=== PATIENT | male | born 1935 | race Caucasian/White ===

== ENCOUNTER 2018-06-18 12:27 | Outpatient (CLI) | payer MEDICARE, BC ==
--- NOTE | 2018-06-18 14:20 | RAD ---
TWO VIEWS OF THE CHEST: DATE: 06/18/18. COMPARISON: 09/30/16. HISTORY: Dyspnea. FINDINGS: There is no pneumothorax or pleural fluid. No focal consolidation or alveolar edema. There is exagg erated thoracic kyphosis, stable. There are postoperative clips in the right upper quadrant suggesti ng prior cholecystectomy, stable. There is stable atherosclerotic calcification of the aortic arch. There is mild increased linear interstitial density with pulmonary hyperinflation suggesting air tra pping, stable as well. IMPRESSION: Stable 2-view examination of the chest as detailed above. POS: [facility]
== END 2018-06-18 12:28 | disposition home or self-care (01) ==
LOC: RAD 12:27
PROVIDERS: ATTEND Internal Medicine Critical Care Medicine
DX: R06.00 Dyspnea, unspecified (principal); M40.294 Other kyphosis, thoracic region; I70.0 Atherosclerosis of aorta; J98.4 Other disorders of lung; Z98.890 Other specified postprocedural states
CPT/HCPCS: 71046

== ENCOUNTER 2018-07-02 08:59 | Outpatient (CLI) | payer MEDICARE, BC | END 2018-07-02 09:00 | disposition home or self-care (01) | LOC: CP 08:59 | PROVIDERS: ATTEND Internal Medicine Critical Care Medicine | DX: R06.00 Dyspnea, unspecified (principal) | CPT/HCPCS: 94060; 94727; 94729 ==

== ENCOUNTER 2019-02-02 09:20 | Outpatient (CLI) | payer MEDICARE, BC ==
--- NOTE | 2019-02-02 09:41 | RAD ---
Exam: Chest 2 views HISTORY:Dyspnea Comparison: 06/18/2018 FINDINGS: Lungs: Patchy left basilar density Cardiac silhouette:Stable Pulmonary vessels: Normal Pleural Spaces: Clear Pneumothorax: None Osseous abnormalities: None of acuity. IMPRESSION: Patchy left basilar density indicative of pneumonia. Recommend follow-up to resolution.
== END 2019-02-02 09:21 | disposition home or self-care (01) ==
LOC: RAD 09:20
PROVIDERS: ATTEND Internal Medicine Critical Care Medicine
DX: R06.00 Dyspnea, unspecified (principal); J18.9 Pneumonia, unspecified organism
CPT/HCPCS: 71046

== ENCOUNTER 2019-04-06 09:11 | Outpatient (CLI) | payer MEDICARE, BC ==
--- NOTE | 2019-04-06 10:10 | RAD ---
2 VIEW CHEST: Date: 04/06/19 INDICATION: Dyspnea. Comparison made to films of 02/02/19 and 06/18/18. FINDINGS: No evidence of infiltrate. No evidence of effusion. Calcified granuloma on the right lower lung is st able. There is a nodular density seen anteriorly on the lateral view which is stable. Heart size uppe r normal and stable. Mild aortic calcification again noted. Vasculature within normal range and stabl e. Osseous structures unremarkable. IMPRESSION: Stable chest findings. POS: [facility]
== END 2019-04-06 09:12 | disposition home or self-care (01) ==
LOC: RAD 09:11
PROVIDERS: ATTEND Internal Medicine Critical Care Medicine
DX: R06.00 Dyspnea, unspecified (principal)
CPT/HCPCS: 71046

== ENCOUNTER 2022-05-29 08:33 | Outpatient (CLI) | payer MEDICARE, BC | END 2022-05-29 08:34 | disposition home or self-care (01) | LOC: BICCT 08:33 | PROVIDERS: ATTEND Family Medicine | DX: K92.1 Melena (principal) | CPT/HCPCS: 74178; 82565 ==

== ENCOUNTER 2022-06-05 10:05 | Outpatient (CLI) | payer MEDICARE, BC | END 2022-06-05 10:06 | disposition home or self-care (01) | LOC: LABBT 10:05 | PROVIDERS: ATTEND Internal Medicine | DX: C34.80 Malignant neoplasm of overlapping sites of unspecified bronchus and lung (principal); Z20.822 Contact with and (suspected) exposure to COVID-19 | CPT/HCPCS: 87811 ==

== ENCOUNTER 2022-06-10 08:46 | Inpatient (IN) | payer MEDICARE, BC ==
[2022-06-10 08:47] LABS: #Eosinphils 0.1 thou/uL (0.0-0.7); #Lymphocytes 0.9 thou/uL (1.20-3.40); #Monocytes 0.5 thou/uL (0.11-0.59); #Neutrophils 3.8 thou/uL (1.40-6.50); %Basophils 0.4 % (0.0-1.0); %Eosinophils 1.6 % (0.0-10.0); %Lymphocytes 16.3 % (21.0-51.0); %Monocytes 8.8 % (0.0-10.0); %Neutrophils 72.8 % (42.0-75.0); Hemoglobin 14.3 g/dL (14.0-18.0); Mean Corpuscular HGB CONC 32.1 g/dL (32.0-36.0); Mean Corpuscular Hemoglobin 31.4 pg (27.0-31.0); Mean Corpuscular Volume 97.6 fL (78.0-98.0); Mean Platelet Volume 7.8 fL (7.4-10.4); Platelet Count 148 thou/uL (130-400); RBC Distribution Width 13.3 % (11.5-14.5); Red Blood Cell (RBC) Count 4.57 mill/uL (4.70-6.10); White Blood Cell (WBC) Count 5.3 thou/uL (4.8-10.8)
[2022-06-10 09:15] LABS: INR-International Normal Ratio 1.1; PTT 34.3 sec (22.9-36.1); Prothrombin Time 14.1 sec (12.0-14.7)
[2022-06-10] MEDS ORDERED: Fentanyl 100 MCG/2 ML VIAL ONE (10:00)
[2022-06-10] MEDS ORDERED: Midazolam HCl 2 mg/2 ml Vial ONE (10:00)
[2022-06-10] MEDS ORDERED: Sodium Bicarbonate 2.5 MEQ/5 ML VIAL ONE (10:01)
[2022-06-10 12:18] LABS: #Eosinphils 0.1 thou/uL (0.0-0.7); #Lymphocytes 1.3 thou/uL (1.20-3.40); #Monocytes 0.6 thou/uL (0.11-0.59); #Neutrophils 5.8 thou/uL (1.40-6.50); %Eosinophils 1.5 % (0.0-10.0); %Lymphocytes 16.1 % (21.0-51.0); %Neutrophils 74.5 % (42.0-75.0); Hemoglobin 12.1 g/dL (14.0-18.0); Mean Corpuscular HGB CONC 33.1 g/dL (32.0-36.0); Mean Corpuscular Hemoglobin 32.3 pg (27.0-31.0); Mean Corpuscular Volume 97.8 fL (78.0-98.0); Mean Platelet Volume 7.6 fL (7.4-10.4); Platelet Count 170 thou/uL (130-400); RBC Distribution Width 13.1 % (11.5-14.5); Red Blood Cell (RBC) Count 3.74 mill/uL (4.70-6.10); White Blood Cell (WBC) Count 7.8 thou/uL (4.8-10.8)
[2022-06-10] MEDS ORDERED: Ondansetron PF 4 MG/2 ML Vial IVP PRN (12:57)
[2022-06-10] MEDS ORDERED: Morphine 2 MG/ML VIAL SLOW IVP PRN (12:57)
[2022-06-10] MEDS ORDERED: Ondansetron ODT 4 MG TAB PO PRN (12:57)
[2022-06-10] MEDS ORDERED: Morphine 2 MG/ML VIAL ONE (15:36)
[2022-06-10 16:40] VITALS: BMI 21.3
[2022-06-10] MEDS: Sodium Chloride 0.45% 1,000 ML IV SCH ×2 (16:57→23:53)
[2022-06-10 17:01] LABS: Hemoglobin 10.5 g/dL (14.0-18.0)
[2022-06-10] MEDS: Albumin 25% 25 GM/100 ML BOT IVPB SCH ×2 (17:02→23:53)
[2022-06-10] MEDS: Mometasone 200 MCG/Formoterol 5 MCG 120 PUFF INHALER INH SCH (18:30)
[2022-06-10] MEDS: Famotidine/PF 20 mg/2ml Vial SLOW IVP SCH (20:38)
[2022-06-10] MEDS: traMADol HCl 50 MG TAB PO PRN (20:38)
[2022-06-10] MEDS: guaiFENesin ER 600 MG TAB PO SCH (20:38)
[2022-06-10] MEDS: Pseudoephedrine HCl 30 MG TAB PO SCH (20:53)
[2022-06-10 22:13] LABS: Hemoglobin 8.7 g/dL (14.0-18.0)
[2022-06-11 01:48] LABS: Hemoglobin 8.3 g/dL (14.0-18.0)
[2022-06-11] MEDS: Albumin 25% 25 GM/100 ML BOT IVPB SCH ×3 (05:26→16:20)
[2022-06-11] MEDS: Mometasone 200 MCG/Formoterol 5 MCG 120 PUFF INHALER INH SCH ×2 (08:00→18:40)
[2022-06-11 08:13] LABS: Hemoglobin 8.8 g/dL (14.0-18.0); Mean Corpuscular HGB CONC 32.2 g/dL (32.0-36.0); Mean Corpuscular Hemoglobin 31.9 pg (27.0-31.0); Red Blood Cell (RBC) Count 2.76 mill/uL (4.70-6.10); White Blood Cell (WBC) Count 6.4 thou/uL (4.8-10.8)
[2022-06-11 08:24] LABS: ALT (SGPT) 12 U/L (8-55); AST (SGOT) 23 U/L (5-34); Albumin 3.8 g/dL (3.4-4.8); Alkaline Phosphatase 69 U/L (40-110); Anion Gap 16 mmol/L (10-20); BUN (Urea Nitrogen) 30 mg/dL (8.4-25.7); Bilirubin, Total 0.8 mg/dL (0.2-1.2); Calc. Creatinine Clearance 32 mL/min (70-130); Calcium 8.4 mg/dL (7.8-10.44); Carbon Dioxide 23 mmol/L (23-31); Chloride 105 mmol/L (98-107); Estimated GFR 39; Globulin 2.2 g/dL (2.4-3.5); Glucose 97 mg/dL (83-110); Potassium 4.5 mmol/L (3.5-5.1); Sodium 139 mmol/L (136-145)
[2022-06-11] MEDS: guaiFENesin ER 600 MG TAB PO SCH ×2 (09:56→20:18)
[2022-06-11] MEDS: Famotidine/PF 20 mg/2ml Vial SLOW IVP SCH (09:57)
[2022-06-11] MEDS: Sodium Chloride 0.45% 1,000 ML IV SCH (09:57)
[2022-06-11] MEDS: Pseudoephedrine HCl 30 MG TAB PO SCH ×2 (09:57→22:48)
[2022-06-11] MEDS: Timolol 0.5% Ophth Soln 5 ml Bottle L EYE SCH (09:57)
[2022-06-11 10:00] LABS: #Eosinphils 0.1 thou/uL (0.0-0.7); #Lymphocytes 0.8 thou/uL (1.20-3.40); #Monocytes 0.6 thou/uL (0.11-0.59); #Neutrophils 4.9 thou/uL (1.40-6.50); %Basophils 0.1 % (0.0-1.0); %Eosinophils 1.5 % (0.0-10.0); %Lymphocytes 12.4 % (21.0-51.0); %Monocytes 9.7 % (0.0-10.0); %Neutrophils 76.4 % (42.0-75.0); MDiff Complete? YES; Platelet Count 102 thou/uL (130-400); Platelet Morphology Comment Appears Decreased; Polychromasia SLIGHT = 2-3 cells (100X) (0-2/hpf)
[2022-06-11 13:21] LABS: Hemoglobin 8.8 g/dL (14.0-18.0)
[2022-06-11] MEDS ORDERED: Furosemide 40 MG/4 ML VIAL SLOW IVP SCH (16:00)
[2022-06-11] MEDS ORDERED: Furosemide 40 MG/4 ML VIAL ONE (16:16)
[2022-06-11 19:38] LABS: Hemoglobin 8.3 g/dL (14.0-18.0)
[2022-06-11] MEDS: traMADol HCl 50 MG TAB PO PRN (20:19)
[2022-06-12] MEDS: Mometasone 200 MCG/Formoterol 5 MCG 120 PUFF INHALER INH SCH ×2 (05:31→21:00)
[2022-06-12 07:49] LABS: Hemoglobin 8.5 g/dL (14.0-18.0)
[2022-06-12] MEDS ORDERED: Famotidine/PF 20 mg/2ml Vial SLOW IVP SCH (09:00)
[2022-06-12] MEDS ORDERED: Iopamidol-370 76% 500 ML 1 ML ONE (09:09)
[2022-06-12] MEDS ORDERED: Magnevist 469MG/ML 20 ML VIAL ONE (09:15)
[2022-06-12] MEDS: Pseudoephedrine HCl 30 MG TAB PO SCH ×2 (09:46→20:11)
[2022-06-12] MEDS: Polyethylene Glycol 3350 17 GM Packet PO SCH (09:46)
[2022-06-12] MEDS: guaiFENesin ER 600 MG TAB PO SCH ×2 (09:46→20:13)
[2022-06-12] MEDS: Timolol 0.5% Ophth Soln 5 ml Bottle L EYE SCH (09:46)
[2022-06-12 13:04] LABS: Hemoglobin 9.6 g/dL (14.0-18.0)
[2022-06-12] MEDS: traMADol HCl 50 MG TAB PO PRN (20:13)
[2022-06-13] MEDS: traMADol HCl 50 MG TAB PO PRN (01:46)
[2022-06-13 07:11] LABS: #Eosinphils 0.1 thou/uL (0.0-0.7); #Lymphocytes 0.8 thou/uL (1.20-3.40); #Monocytes 0.8 thou/uL (0.11-0.59); #Neutrophils 4.4 thou/uL (1.40-6.50); %Basophils 0.2 % (0.0-1.0); %Eosinophils 1.7 % (0.0-10.0); %Lymphocytes 13.2 % (21.0-51.0); %Monocytes 13.7 % (0.0-10.0); %Neutrophils 71.2 % (42.0-75.0); Hemoglobin 9.1 g/dL (14.0-18.0); Mean Corpuscular HGB CONC 33.1 g/dL (32.0-36.0); Mean Corpuscular Hemoglobin 32.5 pg (27.0-31.0); Mean Corpuscular Volume 98.1 fL (78.0-98.0); Mean Platelet Volume 7.7 fL (7.4-10.4); Platelet Count 110 thou/uL (130-400); RBC Distribution Width 13.1 % (11.5-14.5); Red Blood Cell (RBC) Count 2.81 mill/uL (4.70-6.10); White Blood Cell (WBC) Count 6.1 thou/uL (4.8-10.8)
[2022-06-13] MEDS: Mometasone 200 MCG/Formoterol 5 MCG 120 PUFF INHALER INH SCH ×2 (07:18→18:30)
[2022-06-13 07:28] LABS: Anion Gap 15 mmol/L (10-20); BUN (Urea Nitrogen) 39 mg/dL (8.4-25.7); Calc. Creatinine Clearance 27 mL/min (70-130); Calcium 9.4 mg/dL (7.8-10.44); Carbon Dioxide 26 mmol/L (23-31); Chloride 101 mmol/L (98-107); Estimated GFR 33; Glucose 96 mg/dL (83-110); Potassium 4.8 mmol/L (3.5-5.1); Sodium 137 mmol/L (136-145)
[2022-06-13] MEDS: guaiFENesin ER 600 MG TAB PO SCH ×2 (09:47→22:25)
[2022-06-13] MEDS: Polyethylene Glycol 3350 17 GM Packet PO SCH (09:48)
[2022-06-13] MEDS: Pseudoephedrine HCl 30 MG TAB PO SCH ×2 (11:10→22:26)
[2022-06-13] MEDS: Timolol 0.5% Ophth Soln 5 ml Bottle L EYE SCH (11:10)
[2022-06-13] MEDS: Heparin 5,000 UNITS/ML VIAL SC SCH (22:25)
[2022-06-14] MEDS: traMADol HCl 50 MG TAB PO PRN (01:00)
[2022-06-14 05:16] LABS: #Eosinphils 0.1 thou/uL (0.0-0.7); #Lymphocytes 0.5 thou/uL (1.20-3.40); #Monocytes 0.5 thou/uL (0.11-0.59); #Neutrophils 3.9 thou/uL (1.40-6.50); %Basophils 0.5 % (0.0-1.0); %Eosinophils 1.4 % (0.0-10.0); %Lymphocytes 10.3 % (21.0-51.0); %Monocytes 9.6 % (0.0-10.0); %Neutrophils 78.2 % (42.0-75.0); Hemoglobin 8.7 g/dL (14.0-18.0); Mean Corpuscular HGB CONC 32.4 g/dL (32.0-36.0); Mean Corpuscular Hemoglobin 31.6 pg (27.0-31.0); Mean Corpuscular Volume 97.3 fL (78.0-98.0); Mean Platelet Volume 7.8 fL (7.4-10.4); Platelet Count 113 thou/uL (130-400); RBC Distribution Width 13.1 % (11.5-14.5); Red Blood Cell (RBC) Count 2.74 mill/uL (4.70-6.10)
[2022-06-14] MEDS: Acetaminophen 500 MG TAB PO PRN ×3 (05:51→21:13)
[2022-06-14] MEDS: Mometasone 200 MCG/Formoterol 5 MCG 120 PUFF INHALER INH SCH ×2 (07:11→20:13)
[2022-06-14 08:50] LABS: ALT (SGPT) 14 U/L (8-55); AST (SGOT) 27 U/L (5-34); Albumin 3.7 g/dL (3.4-4.8); Alkaline Phosphatase 94 U/L (40-110); Anion Gap 10 mmol/L (10-20); BUN (Urea Nitrogen) 42 mg/dL (8.4-25.7); Calc. Creatinine Clearance 33 mL/min (70-130); Calcium 9.9 mg/dL (7.8-10.44); Carbon Dioxide 33 mmol/L (23-31); Chloride 100 mmol/L (98-107); Estimated GFR 42; Globulin 2.7 g/dL (2.4-3.5); Glucose 80 mg/dL (83-110); Potassium 4.7 mmol/L (3.5-5.1); Protein, Total 6.4 g/dL (5.8-8.1); Sodium 138 mmol/L (136-145)
[2022-06-14] MEDS ORDERED: Milk Of Magnesia 30 ML UDCUP PO PRN (09:00)
[2022-06-14] MEDS: Timolol 0.5% Ophth Soln 5 ml Bottle L EYE SCH (09:13)
[2022-06-14] MEDS: guaiFENesin ER 600 MG TAB PO SCH ×2 (09:14→21:09)
[2022-06-14] MEDS: Polyethylene Glycol 3350 17 GM Packet PO SCH (09:14)
[2022-06-14] MEDS: Pseudoephedrine HCl 30 MG TAB PO SCH ×2 (09:15→21:09)
[2022-06-14] MEDS: Heparin 5,000 UNITS/ML VIAL SC SCH ×2 (09:16→21:09)
[2022-06-14] MEDS: Citrucel 500 MG TAB PO SCH (09:26)
[2022-06-15 06:13] LABS: #Eosinphils 0.1 thou/uL (0.0-0.7); #Lymphocytes 0.4 thou/uL (1.20-3.40); #Monocytes 0.4 thou/uL (0.11-0.59); #Neutrophils 3.5 thou/uL (1.40-6.50); %Eosinophils 1.3 % (0.0-10.0); %Lymphocytes 9.8 % (21.0-51.0); %Neutrophils 79.9 % (42.0-75.0); Hemoglobin 9.3 g/dL (14.0-18.0); Mean Corpuscular HGB CONC 33.2 g/dL (32.0-36.0); Mean Corpuscular Hemoglobin 32.7 pg (27.0-31.0); Mean Corpuscular Volume 98.5 fL (78.0-98.0); Mean Platelet Volume 7.9 fL (7.4-10.4); Platelet Count 122 thou/uL (130-400); RBC Distribution Width 13.1 % (11.5-14.5); Red Blood Cell (RBC) Count 2.84 mill/uL (4.70-6.10); White Blood Cell (WBC) Count 4.4 thou/uL (4.8-10.8)
[2022-06-15] MEDS: Mometasone 200 MCG/Formoterol 5 MCG 120 PUFF INHALER INH SCH ×2 (07:27→19:28)
[2022-06-15] MEDS: Acetaminophen 500 MG TAB PO PRN ×3 (09:13→20:56)
[2022-06-15] MEDS: Citrucel 500 MG TAB PO SCH (09:15)
[2022-06-15] MEDS: Pseudoephedrine HCl 30 MG TAB PO SCH ×2 (09:15→21:02)
[2022-06-15] MEDS: Polyethylene Glycol 3350 17 GM Packet PO SCH (09:15)
[2022-06-15] MEDS: guaiFENesin ER 600 MG TAB PO SCH ×2 (09:15→20:56)
[2022-06-15] MEDS: Timolol 0.5% Ophth Soln 5 ml Bottle L EYE SCH (09:16)
[2022-06-15] MEDS: Heparin 5,000 UNITS/ML VIAL SC SCH ×2 (09:18→20:57)
[2022-06-16] MEDS: traMADol HCl 50 MG TAB PO PRN ×2 (03:22→15:08)
[2022-06-16] MEDS: Mometasone 200 MCG/Formoterol 5 MCG 120 PUFF INHALER INH SCH ×2 (07:18→19:02)
[2022-06-16] MEDS: Timolol 0.5% Ophth Soln 5 ml Bottle L EYE SCH (09:33)
[2022-06-16] MEDS: Polyethylene Glycol 3350 17 GM Packet PO SCH (09:33)
[2022-06-16] MEDS: guaiFENesin ER 600 MG TAB PO SCH ×2 (09:34→20:24)
[2022-06-16] MEDS: Pseudoephedrine HCl 30 MG TAB PO SCH ×2 (09:34→20:24)
[2022-06-16] MEDS: Citrucel 500 MG TAB PO SCH (09:34)
[2022-06-16] MEDS: Heparin 5,000 UNITS/ML VIAL SC SCH ×2 (09:35→20:25)
[2022-06-16] MEDS: Acetaminophen 500 MG TAB PO PRN (12:49)
[2022-06-16] MEDS ORDERED: traMADol HCl 50 MG TAB PO PRN (16:31)
[2022-06-16 17:45] LABS: #Eosinphils 0.1 thou/uL (0.0-0.7); #Lymphocytes 0.6 thou/uL (1.20-3.40); #Monocytes 0.5 thou/uL (0.11-0.59); %Lymphocytes 11.1 % (21.0-51.0); %Neutrophils 77.9 % (42.0-75.0); Hemoglobin 9.5 g/dL (14.0-18.0); Mean Corpuscular HGB CONC 32.8 g/dL (32.0-36.0); Mean Corpuscular Hemoglobin 32.1 pg (27.0-31.0); Mean Platelet Volume 7.2 fL (7.4-10.4); Platelet Count 133 thou/uL (130-400); RBC Distribution Width 13.3 % (11.5-14.5); Red Blood Cell (RBC) Count 2.94 mill/uL (4.70-6.10); White Blood Cell (WBC) Count 5.1 thou/uL (4.8-10.8)
[2022-06-16] MEDS: Melatonin 3 MG TAB PO PRN (23:01)
[2022-06-17 05:33] LABS: #Eosinphils 0.1 thou/uL (0.0-0.7); #Lymphocytes 0.5 thou/uL (1.20-3.40); #Monocytes 0.5 thou/uL (0.11-0.59); #Neutrophils 3.4 thou/uL (1.40-6.50); %Basophils 0.2 % (0.0-1.0); %Eosinophils 1.5 % (0.0-10.0); %Lymphocytes 10.5 % (21.0-51.0); %Monocytes 11.1 % (0.0-10.0); %Neutrophils 76.7 % (42.0-75.0); Hemoglobin 9.9 g/dL (14.0-18.0); Mean Corpuscular HGB CONC 32.2 g/dL (32.0-36.0); Mean Corpuscular Hemoglobin 31.8 pg (27.0-31.0); Mean Corpuscular Volume 98.7 fL (78.0-98.0); Mean Platelet Volume 7.6 fL (7.4-10.4); Platelet Count 139 thou/uL (130-400); RBC Distribution Width 13.3 % (11.5-14.5); White Blood Cell (WBC) Count 4.4 thou/uL (4.8-10.8)
[2022-06-17 05:56] LABS: ALT (SGPT) 21 U/L (8-55); AST (SGOT) 38 U/L (5-34); Albumin 3.5 g/dL (3.4-4.8); Alkaline Phosphatase 107 U/L (40-110); Anion Gap 12 mmol/L (10-20); BUN (Urea Nitrogen) 58 mg/dL (8.4-25.7); Bilirubin, Total 0.8 mg/dL (0.2-1.2); Calc. Creatinine Clearance 30 mL/min (70-130); Calcium 9.9 mg/dL (7.8-10.44); Carbon Dioxide 32 mmol/L (23-31); Chloride 100 mmol/L (98-107); Estimated GFR 37; Glucose 90 mg/dL (83-110); Potassium 5.4 mmol/L (3.5-5.1); Protein, Total 6.5 g/dL (5.8-8.1); Sodium 139 mmol/L (136-145)
[2022-06-17] MEDS: Mometasone 200 MCG/Formoterol 5 MCG 120 PUFF INHALER INH SCH ×2 (07:20→18:47)
[2022-06-17] MEDS: Citrucel 500 MG TAB PO SCH (09:42)
[2022-06-17] MEDS: Heparin 5,000 UNITS/ML VIAL SC SCH ×2 (09:42→20:29)
[2022-06-17] MEDS: guaiFENesin ER 600 MG TAB PO SCH ×2 (09:42→20:28)
[2022-06-17] MEDS: Polyethylene Glycol 3350 17 GM Packet PO SCH (09:43)
[2022-06-17] MEDS: Pseudoephedrine HCl 30 MG TAB PO SCH ×2 (09:43→20:28)
[2022-06-17] MEDS: Timolol 0.5% Ophth Soln 5 ml Bottle L EYE SCH (09:43)
[2022-06-17] MEDS ORDERED: HYDROcodone/Acetaminophen 7.5/325 mg Tablet PO PRN (17:03)
[2022-06-17] MEDS: HYDROcodone/Acetaminophen 7.5/325 mg Tablet PO PRN (17:22)
[2022-06-17] MEDS: Melatonin 3 MG TAB PO PRN (20:29)
[2022-06-18] MEDS: HYDROcodone/Acetaminophen 7.5/325 mg Tablet PO PRN ×2 (06:36→17:55)
[2022-06-18] MEDS: Mometasone 200 MCG/Formoterol 5 MCG 120 PUFF INHALER INH SCH ×2 (07:50→19:28)
[2022-06-18] MEDS: Timolol 0.5% Ophth Soln 5 ml Bottle L EYE SCH (08:24)
[2022-06-18] MEDS: Pseudoephedrine HCl 30 MG TAB PO SCH ×2 (08:25→20:34)
[2022-06-18] MEDS: Polyethylene Glycol 3350 17 GM Packet PO SCH (08:25)
[2022-06-18] MEDS: Citrucel 500 MG TAB PO SCH (08:26)
[2022-06-18] MEDS: Heparin 5,000 UNITS/ML VIAL SC SCH ×2 (08:26→20:34)
[2022-06-18] MEDS: guaiFENesin ER 600 MG TAB PO SCH ×2 (08:26→20:33)
[2022-06-19] MEDS: Melatonin 3 MG TAB PO PRN (01:02)
[2022-06-19] MEDS: HYDROcodone/Acetaminophen 7.5/325 mg Tablet PO PRN (01:04)
[2022-06-19] MEDS: Mometasone 200 MCG/Formoterol 5 MCG 120 PUFF INHALER INH SCH ×2 (07:48→18:46)
[2022-06-19] MEDS ORDERED: Morphine 4 MG/ML VIAL ONE (09:37)
[2022-06-19] MEDS ORDERED: Morphine 4 MG/ML VIAL SLOW IVP PRN (10:05)
[2022-06-19] MEDS: Citrucel 500 MG TAB PO SCH (10:20)
[2022-06-19] MEDS: Heparin 5,000 UNITS/ML VIAL SC SCH ×2 (10:20→20:49)
[2022-06-19] MEDS: guaiFENesin ER 600 MG TAB PO SCH ×2 (10:20→20:45)
[2022-06-19] MEDS: Polyethylene Glycol 3350 17 GM Packet PO SCH (10:21)
[2022-06-19] MEDS: Timolol 0.5% Ophth Soln 5 ml Bottle L EYE SCH (10:21)
[2022-06-19] MEDS: Pseudoephedrine HCl 30 MG TAB PO SCH ×2 (10:21→20:46)
[2022-06-19] MEDS ORDERED: fentaNYL 50 mcg/hour Patch TD SCH (17:30)
[2022-06-19] MEDS: Morphine 4 MG/ML VIAL SLOW IVP PRN (19:16)
[2022-06-20] MEDS: Mometasone 200 MCG/Formoterol 5 MCG 120 PUFF INHALER INH SCH ×2 (07:33→18:46)
[2022-06-20] MEDS: Morphine 4 MG/ML VIAL SLOW IVP PRN (09:32)
[2022-06-20] MEDS: Timolol 0.5% Ophth Soln 5 ml Bottle L EYE SCH (09:33)
[2022-06-20] MEDS: Polyethylene Glycol 3350 17 GM Packet PO SCH (09:35)
[2022-06-20] MEDS: Heparin 5,000 UNITS/ML VIAL SC SCH ×2 (09:42→21:27)
[2022-06-20] MEDS: Citrucel 500 MG TAB PO SCH (09:45)
[2022-06-20] MEDS: guaiFENesin ER 600 MG TAB PO SCH ×2 (09:45→21:26)
[2022-06-20] MEDS: Pseudoephedrine HCl 30 MG TAB PO SCH ×2 (09:45→21:25)
[2022-06-21] MEDS: Mometasone 200 MCG/Formoterol 5 MCG 120 PUFF INHALER INH SCH ×2 (07:47→19:32)
[2022-06-21] MEDS: Timolol 0.5% Ophth Soln 5 ml Bottle L EYE SCH (09:49)
[2022-06-21] MEDS: Polyethylene Glycol 3350 17 GM Packet PO SCH (09:49)
[2022-06-21] MEDS: guaiFENesin ER 600 MG TAB PO SCH ×2 (09:49→21:32)
[2022-06-21] MEDS: Heparin 5,000 UNITS/ML VIAL SC SCH ×2 (09:49→21:33)
[2022-06-21] MEDS: Citrucel 500 MG TAB PO SCH (09:49)
[2022-06-21] MEDS: Pseudoephedrine HCl 30 MG TAB PO SCH ×2 (09:49→21:33)
[2022-06-21] MEDS: Morphine 4 MG/ML VIAL SLOW IVP PRN (21:46)
[2022-06-22] MEDS: Morphine 4 MG/ML VIAL SLOW IVP PRN ×2 (05:44→13:26)
[2022-06-22] MEDS: Mometasone 200 MCG/Formoterol 5 MCG 120 PUFF INHALER INH SCH (07:21)
[2022-06-22 07:27] VITALS: TEMP 98.2
[2022-06-22] MEDS: Timolol 0.5% Ophth Soln 5 ml Bottle L EYE SCH (08:58)
[2022-06-22] MEDS: Heparin 5,000 UNITS/ML VIAL SC SCH (09:00)
[2022-06-22] MEDS: guaiFENesin ER 600 MG TAB PO SCH (09:12)
[2022-06-22] MEDS: Polyethylene Glycol 3350 17 GM Packet PO SCH (09:12)
[2022-06-22] MEDS: Pseudoephedrine HCl 30 MG TAB PO SCH (09:12)
[2022-06-22] MEDS: Citrucel 500 MG TAB PO SCH (09:12)
[2022-06-22 10:33] VITALS: BP 103/70
== END 2022-06-22 14:58 | disposition hospice, inpatient (51) | DRG 919 ==
LOC: CT 08:46 → IMCU/EMU 12:57 → MSONC 06-13 20:44
PROVIDERS: ADMIT Specialist; ATTEND Specialist
PROC: 0FB13ZX Excision of Right Lobe Liver, Percutaneous Approach, Diagnostic (ICD-10-PCS; principal; 2022-06-10)
DX: K91.841 Postprocedural hemorrhage of a digestive system organ or structure following other procedure (principal); Z66 Do not resuscitate; Z51.5 Encounter for palliative care; Z20.822 Contact with and (suspected) exposure to COVID-19; J96.01 Acute respiratory failure with hypoxia; C78.7 Secondary malignant neoplasm of liver and intrahepatic bile duct; C79.31 Secondary malignant neoplasm of brain; C34.01 Malignant neoplasm of right main bronchus; C79.51 Secondary malignant neoplasm of bone; D62 Acute posthemorrhagic anemia; J44.9 Chronic obstructive pulmonary disease, unspecified; I10 Essential (primary) hypertension; Y84.8 Other medical procedures as the cause of abnormal reaction of the patient, or of later complication, without mention of misadventure at the time of the procedure; D69.6 Thrombocytopenia, unspecified; I95.89 Other hypotension; Z79.899 Other long term (current) drug therapy; Z90.49 Acquired absence of other specified parts of digestive tract; Z98.890 Other specified postprocedural states; Z85.46 Personal history of malignant neoplasm of prostate; Z90.79 Acquired absence of other genital organ(s); Z87.891 Personal history of nicotine dependence; Z82.49 Family history of ischemic heart disease and other diseases of the circulatory system; Z87.11 Personal history of peptic ulcer disease; Z80.42 Family history of malignant neoplasm of prostate; Z80.3 Family history of malignant neoplasm of breast; Z80.0 Family history of malignant neoplasm of digestive organs
CPT/HCPCS: 36415; 47000; 70553; 71045; 71260; 74150; 77012; 80048; 80053; 85014; 85018; 85025; 85610; 85730; 86850; 86900; 86901; 88307; 88333; 88334; 88341; 88342; 88360; 93005; 93010; 94640; A9579; J1644; J1940; J2250; J2270; J3010; J7620; P9047; Q9967; S0028

== ENCOUNTER 2022-06-22 15:50 | Inpatient (IN) | payer OTHER ==
[2022-06-22 16:05] VITALS: BMI 20.9
[2022-06-22] MEDS ORDERED: Morphine 4 MG/ML VIAL SLOW IVP PRN (17:13)
[2022-06-22] MEDS ORDERED: Midazolam HCl 2 mg/2 ml Vial SLOW IVP PRN (17:14)
[2022-06-22] MEDS: Morphine 4 MG/ML VIAL SLOW IVP SCH ×3 (17:21→22:01)
[2022-06-23] MEDS: Morphine 4 MG/ML VIAL SLOW IVP SCH ×12 (00:11→22:52)
[2022-06-23 21:00] VITALS: BP 105/62; TEMP 98
[2022-06-24] MEDS: Morphine 4 MG/ML VIAL SLOW IVP SCH ×4 (00:47→07:06)
== END 2022-06-24 08:22 | disposition expired | DRG 951 ==
LOC: MSONC 15:50
PROVIDERS: ADMIT Family Medicine; ATTEND Specialist
DX: Z51.5 Encounter for palliative care (principal); Z66 Do not resuscitate; K91.840 Postprocedural hemorrhage of a digestive system organ or structure following a digestive system procedure; C34.90 Malignant neoplasm of unspecified part of unspecified bronchus or lung; C78.7 Secondary malignant neoplasm of liver and intrahepatic bile duct; Y84.8 Other medical procedures as the cause of abnormal reaction of the patient, or of later complication, without mention of misadventure at the time of the procedure; J44.9 Chronic obstructive pulmonary disease, unspecified; Z87.891 Personal history of nicotine dependence; Z79.899 Other long term (current) drug therapy; Z90.49 Acquired absence of other specified parts of digestive tract; Z98.890 Other specified postprocedural states; Z85.46 Personal history of malignant neoplasm of prostate; Z90.79 Acquired absence of other genital organ(s)
CPT/HCPCS: J2270